=== PATIENT | female | born 2000 | race Hispanic/Latino ===

== ENCOUNTER 2021-04-21 23:23 | Emergency (ER) | payer OTHER, SELFPAY ==
[2021-04-22] MEDS ORDERED: Ondansetron PF 4 MG/2 ML Vial ONE (00:27)
== END 2021-04-22 00:58 | disposition home or self-care (01) ==
LOC: CSHERS 23:23
DX: F10.129 Alcohol abuse with intoxication, unspecified (principal)
CPT/HCPCS: 96374; J2405